=== PATIENT | male | born 1950 | race Caucasian/White ===

== ENCOUNTER → 2018-09-17 10:51 | Outpatient (BNVA) | payer MEDICARE, BC, SELFPAY | PROVIDERS: PCP Family Medicine; Referring Provider Family Medicine; Visit Provider Physical Therapy Assistant | DX: Z12.11 Encounter for screening for malignant neoplasm of colon (principal); I10 Essential (primary) hypertension ==

== ENCOUNTER 2018-10-01 09:04 | Day surgery (SDC) | payer MEDICARE, BC, SELFPAY ==
--- NOTE | 2018-10-01 06:57 | COLE_ITS ---
Date of service: 10/01/18 Time of Service: 11:02 Colonoscopy Report Date of procedure: 10/01/18 Pre-op diagnosis general: Colon Cancer Screening Post-op diagnosis procedure note: other (Mild Diverticulosis) Procedure: Colonoscopy Surgeon: Keesha Martines Anesthesia proc note operative: other (General/ ASA 2/ Mauricio Lagos, EDIN) Estimated blood loss (mL): 0 Pathology: none sent Complications: None Disposition: same day Indications: Mr. Wood is a pleasant 68 year old male seen in the office for a screening colonoscopy. His last Colonoscopy was in 2007 and was normal. Risks, benefits and complications have been reviewed. Complications include but are not limited to bleeding, pain, perforation, missed small lesion/polyp, sore throat, aspiration and adverse reaction to the medications. Questions were entertained a nd answered to their satisfaction and they wished to proceed. No guarantees were given or implied. Prep: Miralax/Dulcolax Procedure Start Time: 11:02 Procedure End Time: 11:23 Retraction Time: 11 minutes Findings: Mild diverticulosis of the sigmoid colon Procedure Description: After informed consent was obtained the patient was taken to the procedure room and placed in a left decubitous position. Monitors were applied and a time out was done. The patients name, date of , procedure, allergies to medications and metal in their body was reviewed. The patient was then sedated. Once sedated and comfortable a rectal exam was done. External exam was normal. Internal exam revealed a normal sphincter tone and no palpable masses. The prostate felt smooth. The scope was then introduced and retro-flexed. No internal hemorrhoids were identified. The scope was then advanced to the cecum without difficulty. The TI and appendiceal orifice were identified. The prep was adequate. The scope was then slowly retracted over 11 minutes back into the rectum. There were no polyps. There was mild diverticulosis of the sigmoid colon. The scope was removed and the patient was woken up and taken back to Same day surgery in stable condition. The patient tolerated the procedure well and there were no immediate complications. Follow up: The patient should follow up in 10 years unless they develop changes in bowel habits or other new gastrointestinal complaints.
--- NOTE | 2018-10-01 06:57 | W.PM.DSUDISC ---
Discharge Plan Disposition Patient Disposition: HOME Condition: Good Discharge Details Reason For Visit: Colonoscopy Attending Provider: Keesha Martines Primary Care Provider: Gian Israel Home Meds and New Rx's Prescriptions: Continued aspirin [Aspir-81] 81 mg tablet,delayed release (DR/EC) 81 mg PO .every 2 days RF: 0 terbinafine HCl 250 mg tablet 250 mg PO DAILY Qty: 30 RF: 2 CENTRUM SILVER TABLET 1 EACH tablet 0.5 tab PO DAILY Qty: 90 RF: 3 sildenafil [Viagra] 100 MG tablet 100 mg PO daily prn Qty: 6 RF: 11 losartan-hydrochlorothiazide 1 EACH tablet 1 tab-cap PO DAILY Qty: 90 RF: 4 Discontinued polyethylene glycol 3350 17 gram/dose powder 238 g PO ONCE Qty: 238 RF: 0 bisacodyl [Dulcolax (bisacodyl)] 5 mg tablet,delayed release (DR/EC) 5 mg PO ONCE Qty: 4 RF: 0 Discharge Instructions Instructions: Colonoscopy (DC), Diverticulosis (DC) Additional Instructions: Findings: mild diverticulosis Follow up: 10 years Please call if you develop: fevers >101.5 Nausea or Vomiting Abdominal pain that is not transient DAY SURGERY UNIT POST COLONOSCOPY INSTRUCTIONS 1. Because there will be medication in your system for the next 24 hours, you may feel a little sleepy. Your coordination will be affected. Therefore: a. Do not drive or operate dangerous equipment for 24 hours. b. Do not drink alcohol beverages for 24 hours (not even beer). c. Plan to go home and rest for the day. 2. Generally there are no restrictions on your activity after a day or so has gone by, but you may feel a bit fatigued for a few days. 3 After you arrive home you may have a light meal and return to a normal diet as you can tolerate it without feeling sick to your stomach. 4. After surgery, you may feel pain or discomfort. This should be only transient, but if it persists please contact your doctor. 5. If there are any questions regarding the findings of your procedure, please feel free to contact your doctor. 6. If you are unable to contact your doctor with a problem, contact the hospital at [phone]. 7. Continue all your regular medications unless directed otherwise. I understand the above instructions and have no questions. Signature of Patient or Responsible Adult Escort Date/Time Name of Responsible Adult Escort Signature of Nurse Date/Time Activity:: Activity as Tolerated Diet:: high fiber diet Discharge Orders Discharge Orders: Discharge Order (Routine); Ordered 10/01/18 Ordered By: Keesha Martines DS: Diagnosis Discharge Diagnosis (1) S/P colonoscopy: Status: Acute (2) Diverticulosis: Status: Acute
[2018-10-01 09:44] VITALS: BP 139/81; PULSE 75; RESP 18; TEMP 36.4; O2SAT 99
[2018-10-01] MEDS: Lactated Ringers 1,000 ML 80 ML IV (10:06)
[2018-10-01 11:58] VITALS: BP 125/95; PULSE 60; RESP 14; TEMP 35.7; O2SAT 99
== END 2018-10-01 12:39 | disposition home or self-care (01) ==
LOC: SUR 09:06
PROVIDERS: PCP Family Medicine; Visit Provider Surgery
PROC: 0DJD8ZZ Inspection of Lower Intestinal Tract, Via Natural or Artificial Opening Endoscopic (ICD-10-PCS; CPT 45378; principal; 2018-10-01 10:45)
DX: Z12.11 Encounter for screening for malignant neoplasm of colon (principal); K57.30 Diverticulosis of large intestine without perforation or abscess without bleeding; I10 Essential (primary) hypertension
CPT/HCPCS: G0121

== ENCOUNTER 2018-12-21 15:10 | Outpatient (CLI) | payer MEDICARE, BC, SELFPAY ==
[2018-12-21 16:09] LABS: CREATININE 1.36 mg/dL (0.70-1.30); Estimated GFR 52.11 (mL/min/1.73m2); Potassium 3.9 mmol/L (3.5-5.1)
== END 2018-12-21 15:30 ==
PROVIDERS: PCP Family Medicine; Visit Provider Family Medicine
DX: I10 Essential (primary) hypertension (principal)
CPT/HCPCS: 36415; 82565; 84132

== ENCOUNTER 2019-12-31 02:47 | Outpatient (CLI) | payer MEDICARE, BC, SELFPAY ==
[2019-12-31 16:25] LABS: CREATININE 1.29 mg/dL (0.70-1.30); Calculated LDL 108 mg/dL (<100); Cholesterol 215 mg/dL (<200); Estimated GFR 55.22 (mL/min/1.73m2); HDL Cholesterol 51 mg/dL (40-60); Potassium 4.1 mmol/L (3.5-5.1); Triglyceride 282 mg/dL (<150)
== END 2019-12-31 03:07 ==
PROVIDERS: PCP Family Medicine; Visit Provider Family Medicine
DX: I10 Essential (primary) hypertension (principal); E78.5 Hyperlipidemia, unspecified
CPT/HCPCS: 36415; 80061; 82565; 84132

== ENCOUNTER 2021-01-20 03:11 | Outpatient (CLI) | payer MEDICARE, BC, SELFPAY ==
[2021-01-20 09:43] LABS: CREATININE 1.3 mg/dL (0.70-1.30); Calculated LDL 119 mg/dL (<100); Cholesterol 207 mg/dL (<200); Estimated GFR 54.57 (mL/min/1.73m2); HDL Cholesterol 57 mg/dL (40-60); Potassium 3.9 mmol/L (3.5-5.1); Triglyceride 155 mg/dL (<150)
== END 2021-01-20 03:12 | disposition home or self-care (01) ==
LOC: LBO 03:11
PROVIDERS: PCP Family Medicine; Visit Provider Family Medicine
DX: I10 Essential (primary) hypertension (principal); E78.5 Hyperlipidemia, unspecified; E11.65 Type 2 diabetes mellitus with hyperglycemia
CPT/HCPCS: 36415; 80061; 82565; 84132

== ENCOUNTER → 2021-12-16 07:48 | Outpatient (BNVA) | payer MEDICARE, SELFPAY | PROVIDERS: PCP Family Medicine; Referring Provider Family Medicine; Visit Provider Student in an Organized Health Care Education/Training Program | DX: M72.0 Palmar fascial fibromatosis [Dupuytren] (principal) | CPT/HCPCS: 99202 ==

== ENCOUNTER → 2022-02-28 14:01 | Outpatient (BNVA) | payer MEDICARE, SELFPAY | PROVIDERS: PCP Family Medicine; Referring Provider Family Medicine; Visit Provider Student in an Organized Health Care Education/Training Program | DX: M72.0 Palmar fascial fibromatosis [Dupuytren] (principal) | CPT/HCPCS: 99213 ==

== ENCOUNTER 2022-03-23 11:47 | Day surgery (SDC) | payer MEDICARE, SELFPAY ==
--- NOTE | 2022-03-23 08:26 | W.PM.DSUDISC ---
Discharge Plan Disposition Patient Disposition: HOME Condition: Good Discharge Details Reason For Visit: Dupuytren's contracture of left hand Attending Provider: Hemal Siddiqi Primary Care Provider: Gian Israel Home Meds and New Rx's Prescriptions: New acetaminophen 500 mg tablet 500 mg PO Q6H PRN (Reason: pain) Qty: 60 2RF hydrocodone-acetaminophen 5-325 mg tablet 1 tab PO Q6H PRN (Reason: severe pain) Qty: 3 0RF Rx Instructions: Take one tablet up to every 6 hours as needed for severe postoperative pain ibuprofen 600 mg tablet 600 mg PO TID PRN (Reason: pain) Qty: 60 0RF Continued fluoride (sodium) [SF] 1.1 % gel 1 applic dental DAILY metoprolol succinate 25 mg tablet extended release 24 hr 50 mg PO DAILY Qty: 180 3RF Rx Instructions: dose increase 10/12/21 amlodipine 10 mg tablet 5 mg PO DAILY Qty: 90 3RF Rx Instructions: dose decrease 10/12/21 CENTRUM SILVER TABLET 1 EACH tablet 0.5 tab PO DAILY Qty: 90 3RF sildenafil [Viagra] 100 mg tablet 100 mg PO daily prn Qty: 30 11RF hydrochlorothiazide 12.5 mg tablet 12.5 mg PO DAILY Qty: 90 3RF losartan 100 mg tablet 100 mg PO DAILY Qty: 90 3RF Discharge Instructions Additional Instructions: Dupuytren's Contracture Discharge Instructions Activity: You may use your fingers for light activity. You should limit any excessive motion or forceful gripping until the sutures have been removed. Dressings: You should keep the initial surgical dressing in place for at least 3 days. You may remove your dressings and get the wound wet after 3 days. You should keep the dressings and the wound clean at all times. You may keep the initial dressing in place until your follow-up but keep the wound covered with light gauze until the sutures are removed. Medications: - You should take Tylenol and Ibuprofen around the clock as prescribed or per track production engineer's recommendations. - You have Hydrocodone prescribed for breakthrough pain control. Take only as needed and limit use as much as possible. This may cause constipation. Follow-up: 7-10 days for wound check and suture removal. Stand Alone Forms: Rodney Portillo (ATIF) Referrals: Hemal Siddiqi MD [ [facility] STAFF PHYSICIAN] - Activity:: Elevate Remove Dressings/Wound Care:: 72 hours Shower/Bathe:: 72 hours Diet:: As Tolerated Discharge Orders Discharge Orders: Discharge Order (Routine); Ordered 03/23/22 Ordered By: Kaye Calderon
[2022-03-23 12:04] VITALS: BP 129/87; PULSE 76; RESP 16; TEMP 36.7; O2SAT 97
[2022-03-23] MEDS: Lidocaine 1% Multi-Dose W/EPI 1/100,000 50 ML VIAL (13:54)
[2022-03-23] MEDS: Sodium Bicarbonate 50 MEQ/50 ML VIAL (13:54)
[2022-03-23 14:32] VITALS: BP 140/80; PULSE 63; RESP 16; TEMP 36.2; O2SAT 96
--- NOTE | 2022-03-24 06:52 | W.PM.OP ---
Date of service: 03/23/22 Time of Service: 14:30 Operative Note Operative Note DATE OF PROCEDURE: 03/23/22 PRE-OP DIAGNOSIS: Left Dupuytren's Contracture POST-OP DIAGNOSIS: same PROCEDURE: Partial Palmar Fasciectomy for Dupuytren's SURGEON: Hemal Siddiqi ANESTHESIA TYPE: Local By Surgeon Refer to Anesthesia Record ESTIMATED BLOOD LOSS: 10 PATHOLOGY: none sent TOURNIQUET TIME: 0 COMPLICATIONS: None Patient was transported to: same day Patient's condition: stable Indications: I have seen Geovani in clinic for symptoms of Dupuytren's contracture. The restricted motion, pain, and nodularity limited function. The symptoms had not responded to conservative measures. I discussed treatment options with the patient. I recommended a partial palmar fasciectomy. I reviewed the risks of the procedure to include, but not limited to, bleeding, infection, pain, stiffness, incomplete resection, damage to nerves or vessels, recurrence. Despite these risks,Geovani elected to proceed. Findings: There is a dense central cord from the palm to the base of the middle finger. This was resected and whole including a large nodule overlying the middle finger MCP joint. Additionally, there is a natatory cord from the third ray central cord towards the ring finger. This was also resected. Procedure Description: Geovani was greeted in the preoperative holding area where the correct side was identified and marked. The consent was reviewed with the patient and signed. All questions were answered. Geovani was taken back to the operating room. The patient was placed into the supine position on the operating room table with the left arm on an arm board. All bony prominences were well padded. No prophylactic antibiotics were administered since this was a clean, elective hand surgical case. The left arm was then prepped with Chloraprep and draped in a standard fashion with stockinette and extremity drape. A timeout to confirm correct identity, side and site, procedure, allergies, anesthesia, and medical concerns was performed. The surgical site was marked as a Hossein type incision directly over the central cord of the third digit extending onto the base of the middle finger. This was then incised sharply through the skin after confirming appropriate anesthetic set up. There was a small area of skin resected overlying the large pad of the palmar MCP joint of the middle finger. The skin was tightly adherent to the nodule in this location. Otherwise, the skin was elevated off the underlying cord and bluntly dissected from the other soft tissues using tenotomy scissors and a knife. This gave excellent exposure to the central cord of the middle finger. Starting proximally I elevated the base of the cord from the skin and soft tissues deep. I then transected and began to elevate the cord out of the palm working from proximal to distal. This is elevated and hold keep in the court is 1 unit. Continue to be elevated to the level of the MP joint. Some attachments to the A1 shania were resected. The large nodule of the middle finger MCP joint was removed in whole including a portion of skin which was tightly adherent. Once this was resected it was transected from a natatory cord extending the ring finger. The cord was removed. The wound bed was inspected to make sure there is no other significant nodularity or cords. There is a small nodule just proximal to the larger one which was removed but given its proximity to the other area and the thinning of the skin I did not elevate this out. However, because no contracture of the digit. I then began to elevate the skin and soft tissues over the natatory cord extending from the middle finger ray towards the ring finger. This was elevated towards the base of the proximal fans of the ring finger. Once it was fully elevated it was resected. The dimpling of the skin at the level the ring finger then improved and there is no contracture felt between the middle and ring fingers. No tourniquet was used and there is no significant arterial bleeding. There was some constant ooze which was present from the entirety of the case mostly from the skin. The wound was then irrigated and the skin was closed with a 4-0 Nylon. This was dressed with gauze and a Conform dressing. The patient tolerated the procedure well and was returned to the Same Day Surgery area in a stable condition suffering no known complication.
== END 2022-03-23 15:08 | disposition home or self-care (01) ==
PROVIDERS: PCP Family Medicine; Visit Provider Student in an Organized Health Care Education/Training Program
PROC: (CPT 26121; principal; 2022-03-23 14:30)
DX: M72.0 Palmar fascial fibromatosis [Dupuytren] (principal)
CPT/HCPCS: 26121

== ENCOUNTER → 2022-04-01 09:40 | Outpatient (BNVA) | payer MEDICARE, SELFPAY | PROVIDERS: PCP Family Medicine; Referring Provider Family Medicine; Visit Provider Student in an Organized Health Care Education/Training Program | DX: Z47.89 Encounter for other orthopedic aftercare (principal); M72.0 Palmar fascial fibromatosis [Dupuytren] ==

== ENCOUNTER 2022-04-28 03:59 | Outpatient (CLI) | payer MEDICARE, SELFPAY ==
[2022-04-28 08:02] LABS: CREATININE 1.3 mg/dL (0.70-1.30); Calculated LDL 130 mg/dL (<100); Cholesterol 220 mg/dL (<200); Estimated GFR 58.73 (mL/min/1.73m2); HDL Cholesterol 56 mg/dL (40-60); Potassium 3.9 mmol/L (3.5-5.1); Triglyceride 172 mg/dL (<150)
== END 2022-04-28 04:00 | disposition home or self-care (01) ==
LOC: LBO 03:59
PROVIDERS: PCP Family Medicine; Visit Provider Family Medicine
DX: E78.5 Hyperlipidemia, unspecified (principal); I10 Essential (primary) hypertension
CPT/HCPCS: 36415; 80061; 82565; 84132

== ENCOUNTER → 2022-05-13 00:50 | Outpatient (CLI) | payer MEDICARE, SELFPAY ==
--- NOTE | 2022-05-13 06:45 | DI.RAD_ITS ---
Exam(s) RF BARIUM SWALLOW EXAM: RF BARIUM SWALLOW CLINICAL HISTORY: choking on food at times,DYSPHAGIA, R13.10 TECHNIQUE: 2D and realtime digital imaging was performed. CONTRAST MATERIAL: Oral barium Oral water soluble contrast was administered. COMPARISON: CR CHEST 2 VIEWS PA,LAT from 06/21/2016 FINDINGS: ESOPHAGRAM: This esophagram was performed with single and air contrast technique both upright and CARRILLO recumbent. The junior data analyst film reveals infiltrate and pleural fluid in left lung base. Also calcified pleural plaque in the right lung base. Swallowing mechanism appears intact and there is no penetration or aspiration evident. No Zenker's d iverticulum. There is no hypertense upper esophageal sphincter. However there is a consistent small indentation of the anterior wall of the upper esophagus at C5 level, exhibiting benign appearance an d without tight stricture at this level. Below this level there are no fixed lesions in the an GE ju nction. There is no evidence of hiatal hernia. There is no GE reflux demonstrated during this study . IMPRESSION: No evidence of significant lesions in the esophagus and GE junction. Also no evidence of hiatal crow ia nor GE reflux. Upper level anterior bar noted indenting the anterior wall of the esophagus at C5 level. This has be nign appearance and there is no tight stricture at this level. There is also no evidence of Zenker's diverticulum. RADIATION DOSE DELIVERED: reji Amador=52.6 mGy
[2022-05-13] MEDS: Barium Sulfate 60% W/V 355 ML BTL PO ×2 (09:33→09:34)
[2022-05-13] MEDS: Simethicone/Sod Bicarb/Cit Ac, 4 gram PACKET 1 PACKET PO (09:35)
== END ==
PROVIDERS: PCP Family Medicine; Visit Provider Family Medicine
DX: R13.10 Dysphagia, unspecified (principal)
CPT/HCPCS: 74221

== ENCOUNTER 2022-07-19 03:07 | Outpatient (CLI) | payer MEDICARE, SELFPAY ==
[2022-07-19 13:11] LABS: Vitamin B12 607 pg/mL (193-986)
== END 2022-07-19 03:08 | disposition home or self-care (01) ==
LOC: LOS 03:08
PROVIDERS: PCP Family Medicine; Visit Provider Family Medicine
DX: D64.9 Anemia, unspecified (principal)
CPT/HCPCS: 36415; 82607

== ENCOUNTER → 2023-02-17 09:56 | Outpatient (BNVA) | payer MEDICARE, SELFPAY | PROVIDERS: PCP Family Medicine; Referring Provider Family Medicine; Visit Provider Student in an Organized Health Care Education/Training Program | DX: M72.0 Palmar fascial fibromatosis [Dupuytren] (principal) | CPT/HCPCS: 99213 ==

== ENCOUNTER 2023-04-26 10:00 | Day surgery (SDC) | payer MEDICARE, SELFPAY ==
[2023-04-26 10:05] VITALS: BP 154/93; PULSE 68; RESP 18; TEMP 36.6; O2SAT 97
[2023-04-26] MEDS: Lidocaine 1% Multi-Dose W/EPI 1/100,000 50 ML VIAL (11:47)
[2023-04-26] MEDS: Sodium Bicarbonate 50 MEQ/50 ML VIAL (11:48)
--- NOTE | 2023-04-26 12:08 | W.PM.DSUDISC ---
Date of service: 04/26/23 Time of Service: 12:09 Discharge Plan Disposition Patient Disposition: Home Condition: Good Discharge Details Reason For Visit: Dupuytren's Contracture Release Attending Provider: Hemal Siddiqi Primary Care Provider: Gian Israel Home Meds and New Rx's Prescriptions: New acetaminophen 500 mg tablet 1,000 mg PO TID Qty: 90 0RF hydrocodone-acetaminophen 5-325 mg tablet 1 tab PO Q6H PRN (Reason: pain) Qty: 6 0RF Continued fluoride (sodium) [SF] 1.1 % gel 1 applic dental DAILY CENTRUM SILVER TABLET 1 EACH tablet 0.5 tab PO DAILY Qty: 90 3RF sildenafil [Viagra] 100 mg tablet 100 mg PO daily prn Qty: 30 11RF hydrochlorothiazide 12.5 mg tablet 12.5 mg PO DAILY Qty: 90 3RF Rx Instructions: 90 day courtesy refill pending labs. 04/18/22 AT tacrolimus 0.1 % ointment 1 applic topical BID Qty: 60 1RF amlodipine 10 mg tablet 5 mg PO DAILY Qty: 90 3RF losartan 100 mg tablet 100 mg PO DAILY Qty: 90 3RF metoprolol succinate 25 mg tablet extended release 24 hr 50 mg PO DAILY Qty: 180 3RF Discontinued acetaminophen 500 mg tablet 500 mg PO Q6H PRN (Reason: pain) Qty: 60 2RF Discharge Instructions Additional Instructions: Dupuytren's Contracture Discharge Instructions Activity: You may use your fingers for light activity. You should limit any excessive motion or forceful gripping until the sutures have been removed. Dressings: You should keep the initial surgical dressing in place for at least 3 days. You may remove your dressings and get the wound wet after 3 days. You should keep the dressings and the wound clean at all times. You may keep the initial dressing in place until your follow-up but keep the wound covered with light gauze until the sutures are removed. Medications: - You should take Tylenol around the clock as prescribed or per opto mechanical technician's recommendations. - You have Hydrocodone prescribed for breakthrough pain control. Take only as needed and limit use as much as possible. This may cause constipation. Follow-up: 7-10 days for wound check and suture removal. Referrals: Hemal Siddiqi MD [ [facility] STAFF PHYSICIAN] - Activity:: Activity as Tolerated Remove Dressings/Wound Care:: 72 hours Shower/Bathe:: 72 hours Diet:: As Tolerated Discharge Orders Discharge Orders: Discharge Order (Routine); Ordered 04/26/23 Ordered By: Igor Maurice DS: Diagnosis Discharge Diagnosis (1) Dupuytren's contracture of both hands: Status: Acute
[2023-04-26 12:55] VITALS: BP 148/77; PULSE 63; RESP 14; TEMP 36.2; O2SAT 97
--- NOTE | 2023-04-26 17:36 | W.PM.OP ---
Date of service: 04/26/23 Time of Service: 12:30 Operative Note Operative Note DATE OF PROCEDURE: 04/26/23 PRE-OP DIAGNOSIS: Dupuytren's Disease - Right Hand POST-OP DIAGNOSIS: same PROCEDURE: Partial Palmar Fasciectomy - Right Hand with Fascial Excision of Little Finger and Ring Finger SURGEON: Hemal Siddiqi ANESTHESIA TYPE: Local By Surgeon Refer to Anesthesia Record ESTIMATED BLOOD LOSS: 20 PATHOLOGY: none sent COMPLICATIONS: None Patient was transported to: same day Patient's condition: stable Indications: I have seen Geovani in clinic for Dupuytren's contracture invovling the hadn and the little and ring fingers primarily. The deformity was interfering with daily function and he had successful surgery on the left hand last year. I discussed partial palmar fasciectomy with the patient. I reviewed the risks of the procedure to include, but not limited to, bleeding, infection, pain, stiffness, incomplete release, damage to nerves or vessels, continued catching, recurrence. Despite these risks, the patient elected to proceed. Procedure Description: Geovani was greeted in the preoperative holding area where the correct side was identified and marked. The consent was reviewed with the patient and signed. All questions were answered. He was taken back to the operating room. The patient was placed into the supine position on the operating room table with the right arm on an arm board. All bony prominences were well padded. No prophylactic antibiotics were administered since this was a clean, elective hand surgical case. The right arm was then prepped with Chloraprep and draped in a standard fashion with stockinette and extremity drape. A timeout to confirm correct identity, side and site, procedure, allergies, anesthesia, and medical concerns was performed. The surgical site was marked as 2 Hossein incisions, one biased over the little finger ray and the other biased over the radial side of the ring finger ray. The proposed little finger incision extended all the way to the PIP joint. The proposed incision sites were then injected with 1% lidocaine with epinephrine, buffered with sodium bicarbonate. Once complete anesthesia was had over the proposed sites, surgery began with incising the skin only, starting with the little finger. The skin was incised and adhesions between the skin and the underlying palmar fascial cords was released. The primary central cord of the little finger was identified and traced back proximally. It was transected from the proximal origin and then elevated out of the wound. There is multiple deep structural bands attaching to the A1 shania and flexor tendon sheath deep. These were released and taken out through the central portion of the proximal phalanx. There is a separate spiral type cord ascending to the little finger which cross the PIP joint with a nodule at the level of the PIP joint. This was excised sharply. Neurovascular tissues were protected. The cord was resected and any deeper adhesions were released to regain full motion of the PIP joint. Working from within this wound I also traced and identified a natatory cord between the little finger and ring finger. This was also dissected away from the overlying skin and released. Attention was then turned to the middle finger ray. This incision was incised through the skin only. Once again adhesions between the skin and the palmar fascia cord were released and the central cord above the middle finger was identified. This was taken down distally to the level of the proximal phalanx. It did not have any spiral component. However, it was quite thick and dense. The bulk of the cord was resected. Adhesions deeper were released. The natatory cord was also resected. I was also able to elevate the skin and transect the middle finger ray cord. Fingers had full extension. The wound was then irrigated and the skin was closed with a 4-0 Nylon. This was dressed with gauze and a Conform dressing. The patient tolerated the procedure well and was returned to the Same Day Surgery area in a stable condition suffering no known complication.
== END 2023-04-26 10:01 | disposition home or self-care (01) ==
PROVIDERS: PCP Family Medicine; Visit Provider Student in an Organized Health Care Education/Training Program
PROC: (CPT 26125; principal; 2023-04-26 11:30)
DX: M72.0 Palmar fascial fibromatosis [Dupuytren] (principal)
CPT/HCPCS: 26125; 26123; 00123; J1100; J2001; J2250; J2405

== ENCOUNTER → 2023-05-08 10:22 | Outpatient (BNVA) | payer MEDICARE, SELFPAY | PROVIDERS: PCP Family Medicine; Referring Provider Family Medicine; Visit Provider Student in an Organized Health Care Education/Training Program | DX: Z47.89 Encounter for other orthopedic aftercare (principal); M72.0 Palmar fascial fibromatosis [Dupuytren] ==

== ENCOUNTER 2023-05-30 03:14 | Outpatient (CLI) | payer MEDICARE, SELFPAY ==
[2023-05-30 08:40] LABS: CREATININE 1.4 mg/dL (0.70-1.30); Calculated LDL 121 mg/dL (<100); Cholesterol 209 mg/dL (<200); Estimated GFR 53.07 (mL/min/1.73m2); HDL Cholesterol 64 mg/dL (40-60); Potassium 4.3 mmol/L (3.5-5.1); Triglyceride 124 mg/dL (<150)
== END 2023-05-30 03:15 | disposition home or self-care (01) ==
LOC: LBO 03:14
PROVIDERS: PCP Family Medicine; Visit Provider Family Medicine
DX: I10 Essential (primary) hypertension (principal); E78.5 Hyperlipidemia, unspecified; E11.51 Type 2 diabetes mellitus with diabetic peripheral angiopathy without gangrene
CPT/HCPCS: 36415; 80061; 82565; 83036; 84132

== ENCOUNTER 2024-05-15 00:55 | Outpatient (CLI) | payer MEDICARE, SELFPAY ==
--- NOTE | 2024-05-15 07:00 | DI.US_ITS ---
Exam(s) US CAROTID EXAM: US CAROTID CLINICAL HISTORY: rt leg numbness,tia,g45.9. TECHNIQUE: Ultrasound carotids performed using grayscale, color-flow, and spectral Doppler imaging. COMPARISON: No exams were available for comparison FINDINGS: RIGHT CAROTID ARTERY: Plaque: Minimal at bulb. Velocity elevation: None. LEFT CAROTID ARTERY: Plaque: Minimal at bulb. Velocity elevation: None. VERTEBRAL ARTERIES: Antegrade flow. Measurements: R Bulb: 72.3cm/s PS / 23.5cm/s ED R CCA: 81.5cm/s PS / 14.1cm/s ED R ECA: 58cm/s PS / 6.3cm/s ED R ICA Prox: 62.6cm/s PS / 19.1cm/s ED R ICA Mid: 93.6cm/s PS / 31.6cm/s ED R ICA Distal: 92.2cm/s PS /31.4cm/s ED R Vert: 37cm/s PS / 5.8cm/s ED R SVR: 1.1 R DVR: 2.2 L Bulb: 75.3cm/s PS / 15.2cm/s ED L CCA: 72.3cm/s PS / 17.3cm/s ED L ECA: 74.3cm/s PS / 10.1cm/s ED L ICA Prox: 67.4cm/s PS / 19.5cm/s ED L ICA Mid: 76.8cm/s PS / 26.8cm/s ED L ICA Distal: 88.4cm/s PS / 31cm/s ED L Vert: 50.2cm/s PS / 12.7cm/s ED L SVR: 1.2 L DVR: 1.8 IMPRESSION: No evidence for hemodynamically significant carotid stenosis. Minimal focal plaque at the common car otid bulbs. Criteria for Carotid Stenosis: Normal: ICA PSV <125 cm/s no plaque or intimal thickening is visible. <50% stenosis: ICA PSV <125 cm/s and plaque or intimal thickening is visible. 50-69% stenosis: ICA PSV is 125-250 cm/s and plaque is visible. >70% stenosis to near occlusion: ICA PSV >250 cm/s with visible plaque and luminal narrowing. DATA REPOSITORY:
== END 2024-05-15 01:15 ==
LOC: DI 00:55
PROVIDERS: PCP Family Medicine; Visit Provider Family Medicine
DX: G45.9 Transient cerebral ischemic attack, unspecified (principal)
CPT/HCPCS: 93880

== ENCOUNTER 2024-05-15 02:21 | Outpatient (CLI) | payer MEDICARE, SELFPAY ==
[2024-05-15 11:58] LABS: CREATININE 1.3 mg/dL (0.70-1.30); Calculated LDL 112 mg/dL (<100); Cholesterol 197 mg/dL (<200); Estimated GFR 58.01 (mL/min/1.73m2); Glucose 92 mg/dL (74-106); HDL Cholesterol 67 mg/dL (40-60); Potassium 4.3 mmol/L (3.5-5.1); Triglyceride 92 mg/dL (<150)
== END 2024-05-15 02:22 | disposition home or self-care (01) ==
LOC: LBO 02:21
PROVIDERS: PCP Family Medicine; Visit Provider Family Medicine
DX: I10 Essential (primary) hypertension (principal); R73.9 Hyperglycemia, unspecified; E78.5 Hyperlipidemia, unspecified
CPT/HCPCS: 36415; 80061; 82947; 82565; 84132

== ENCOUNTER 2024-06-04 09:02 | Outpatient (CLI) | payer MEDICARE, SELFPAY ==
[2024-06-04 08:36] LABS: Hemoglobin A1C 6.4 % (<5.7)
== END 2024-06-04 09:03 | disposition home or self-care (01) ==
LOC: LBO 09:02
PROVIDERS: PCP Family Medicine; Visit Provider Family Medicine
DX: E11.51 Type 2 diabetes mellitus with diabetic peripheral angiopathy without gangrene (principal); I70.209 Unspecified atherosclerosis of native arteries of extremities, unspecified extremity
CPT/HCPCS: 36415; 83036

== ENCOUNTER 2024-06-24 12:00 | Outpatient (CLI) | payer MEDICARE, SELFPAY ==
[2024-06-24 09:47] LABS: Abs Immature Grans 0.02 10^3/uL (0.0-0.06); Absolute Basophil Count 0.11 10^3/uL (0.0-0.2); Absolute Eosinophil Count 0.62 10^3/uL (0.0-0.7); Absolute Lymphocyte Count 1.63 10^3/uL (1.2-3.4); Absolute Monocyte Count 0.67 10^3/uL (0.1-0.8); Absolute Neutrophil Count 3.71 10^3/uL (1.2-6.7); Basophils % 1.6 %; Eosinophils % 9.2 %; HCT 42.8 % (40.0-50.0); HGB 13.7 g/dL (13.5-17.5); Immature Grans % 0.3 %; Lymphocytes % 24.1 %; MCH 26.8 pg (27.0-33.0); MCV 84 fL (80-95); MPV 10.2 fL (8.0-11.0); Monocytes % 9.9 %; Neutrophils % 54.9 %; Platelet Count 300 10^3/uL (130-400); RBC 5.12 10^6/uL (4.36-5.78); RDW 16.4 % (11.8-14.1); RDW-SD 49.6 fL; WBC 6.76 10^3/uL (4.4-10.8)
[2024-06-24 10:25] LABS: Iron 64 ug/dL (65-175); Total Iron Binding Capacity 425 ug/dL (250-450)
[2024-06-24 10:35] LABS: ALT 28 U/L (16-63); AST 24 U/L (15-37); Albumin 3.7 g/dL (3.4-5.0); Alkaline Phosphatase 69 U/L (46-116); Anion Gap 6.3 mmol/L (3-11); BUN 24 mg/dL (7-18); Bilirubin, Total 1.05 mg/dL (0.2-1.0); CO2 29.7 mmol/L (21.0-32.0); CREATININE 1.4 mg/dL (0.70-1.30); Chloride 104 mmol/L (98-107); Estimated GFR 52.74 (mL/min/1.73m2); Ferritin 12 ng/mL (26-388); Glucose 82 mg/dL (74-106); Potassium 4.4 mmol/L (3.5-5.1); Sodium 140 mmol/L (136-145); TSH (W/Ref FT4) 1.82 uIU/mL (0.36-3.74); Total Protein 7.8 g/dL (6.4-8.2); Vitamin B12 747 pg/mL (193-986)
[2024-06-25 09:43] LABS: Transferrin 362 mg/dL (201-352)
== END 2024-06-24 12:01 | disposition home or self-care (01) ==
LOC: LBO 12:00
PROVIDERS: PCP Family Medicine; Visit Provider Nurse Practitioner Family
DX: D64.9 Anemia, unspecified (principal)
CPT/HCPCS: 36415; 80053; 82607; 82728; 83540; 83550; 84443; 84466; 85025

== ENCOUNTER 2024-07-10 04:29 | Outpatient (CLI) | payer MEDICARE, SELFPAY ==
--- NOTE | 2024-07-11 10:46 | TELEFU_ITS ---
Date of service: 07/10/24 Time of Service: 14:30 Nutrition Note NOTE: Christina arrived for referred nutrition appt with his , Carito, who tends to do most of the meal prep/cooking. Concern over Christina's A1C prompted today's visit, which increased to 6.4% at provider visit 06/24. Christina suggest that this increase was due to time of the year with holidays contributing. He had labs done on 06/24 and had high BUN/Cr at 24/1.4 respectively and also GFR of 52.74. Ferritin was low and transferrin was high possibly indication lower hepatic iron stores. Pt eats pretty well at home and is very active for his age. Has strong history of familial diabetes. Does have sensitivity to lactose but denies gluten allergy that I see listed in his allergy list. Does not take any meds for glucose management currently. We spent time reviewing his targets for calories, total carbohydrates, protein and fat (2000,200,125-150, 67 respectively) and reviewed carb goals of no more than 30g of total carbs coming from added sugars and trying to get a good 30g fiber out of this total as well. We discussed protein goal and aiming for a fair percentage to come from plant protein with using beans, lentils to replace some starch and also use nuts and seeds as part of snacks. We looked at serving sizes of CHO and 15g in a serving - suggested 13 servings as goal for the day. and we discussed choosing lower glycemic starches (which his seemed to have knowledge about). We reviewed a 2-day sample menu and pt and given resources to help suggest menus using AI resources. gave my card with contact info should they desire follow up (Christina sees rahat in august) REcommendations would be to stay active, monitor and manipulate carb/added sugar intake and maintain adequate protein intake. if glycemic control continues to worsen, would suggest a starting dose of SGLT2- i due to lower GFR and elevated BUN/Cr. -Encouraged christina to stay on top of blood pressure and cholesterol as well. Time Spent in Nutritional Counseling and Treatment: 45 min
== END 2024-07-10 04:30 | disposition home or self-care (01) ==
LOC: DS 04:29
PROVIDERS: PCP Family Medicine; Visit Provider Dietitian, Registered
DX: R73.9 Hyperglycemia, unspecified (principal)
CPT/HCPCS: 00123; 97802

== ENCOUNTER 2024-09-09 04:16 | Outpatient (CLI) | payer MEDICARE, SELFPAY ==
[2024-09-09 10:51] LABS: Abs Immature Grans 0.02 10^3/uL (0.0-0.06); Absolute Eosinophil Count 0.54 10^3/uL (0.0-0.7); Absolute Lymphocyte Count 1.74 10^3/uL (1.2-3.4); Absolute Monocyte Count 0.59 10^3/uL (0.1-0.8); Absolute Neutrophil Count 4.48 10^3/uL (1.2-6.7); Basophils % 1.3 %; Eosinophils % 7.2 %; HCT 39.6 % (40.0-50.0); HGB 13.1 g/dL (13.5-17.5); Immature Grans % 0.3 %; Lymphocytes % 23.3 %; MCH 27.9 pg (27.0-33.0); MCHC 33.1 % (32.0-36.0); MCV 84 fL (80-95); MPV 10.7 fL (8.0-11.0); Monocytes % 7.9 %; Platelet Count 271 10^3/uL (130-400); RBC 4.69 10^6/uL (4.36-5.78); RDW 17.1 % (11.8-14.1); RDW-SD 52.3 fL; WBC 7.47 10^3/uL (4.4-10.8)
[2024-09-09 11:30] LABS: Ferritin 15 ng/mL (26-388)
[2024-09-09 12:02] LABS: Iron 165 ug/dL (65-175); Total Iron Binding Capacity 396 ug/dL (250-450)
[2024-09-10 10:41] LABS: Transferrin 311 mg/dL (201-352)
== END 2024-09-09 04:17 | disposition home or self-care (01) ==
LOC: LBO 04:16
PROVIDERS: PCP Family Medicine; Visit Provider Nurse Practitioner Family
DX: D50.9 Iron deficiency anemia, unspecified (principal); R73.9 Hyperglycemia, unspecified
CPT/HCPCS: 82728; 83036; 83540; 83550; 84466; 85025

== ENCOUNTER 2024-11-19 06:08 | Emergency (ER) | payer MEDICARE, SELFPAY ==
[2024-11-19] VITALS (34 sets, daily range): BP systolic 138–197; BP diastolic 68–93; PULSE 40–66; RESP 12–24; TEMP 36.6; O2SAT 97–100
--- NOTE | 2024-11-19 06:00 | RT.EKG_ITS ---
APPROVED REPORT Exam: Resting ECG Reason for Exam: Chest Pain Patient Location: E HR:60 bpm ECG Measurements Heart Rate 60 AXIS MA 209 P 86 QRSd 101 QRS 47 QT 437 T 40 QTc 436 Conclusion Sinus rhythm...normal P axis, V-rate 60- 99 Probable anterolateral infarct, old...Q>35mS, abnrm ST-T, V2-V6,I,aVL PHysician: Elevated R waves suggestive of VH, somewhat increased from prior ekg in 2018
--- NOTE | 2024-11-19 06:15 | DI.RAD_ITS ---
Exam(s) XR PORTABLE CHEST AP EXAM: XR PORTABLE CHEST AP CLINICAL HISTORY: central chest discomfort TECHNIQUE: 2D digital imaging was performed. COMPARISON: CR CHEST 2 VIEWS PA,LAT from 06/21/2016 CR,RF RF BARIUM SWALLOW from 05/13/2022 FINDINGS: LUNGS: Biapical scarring, otherwise clear. No pleural abnormality seen. HEART: Normal size. AORTA: Normal diameter. BONES: Unremarkable for age. Soft tissues: The left hemidiaphragm is elevated. Pleural plaque again noted at right diaphragm. IMPRESSION: No acute findings. DATA REPOSITORY: RADIATION DOSE DELIVERED:
[2024-11-19] MEDS: Aspirin 81 MG CHEW 324 MG CH (06:25)
--- NOTE | 2024-11-19 06:26 | W.ED.GENAD ---
Discharge Plan Discharge Details Chief Complaint: Chest Pain Clinical Impression: Chest discomfort Primary Care Provider: Gian Israel ED Provider: Nelson Hearn Home Meds and New Rx's Prescriptions: No Action mecobalamin (vitamin B12) 500 mcg tablet,chewable 500 mcg PO DAILY doxycycline hyclate 100 mg capsule 200 mg PO ONCE Qty: 2 0RF Rx Instructions: Take 2 tabs (200mg) x1. Be cautious of sun exposure CENTRUM SILVER TABLET 1 EACH tablet 0.5 tab PO DAILY Qty: 90 3RF sildenafil [Viagra] 100 mg tablet 100 mg PO daily prn Qty: 30 11RF tacrolimus 0.1 % ointment 1 applic topical BID Qty: 60 1RF losartan 100 mg tablet 100 mg PO DAILY Qty: 90 3RF metoprolol succinate 25 mg tablet extended release 24 hr 50 mg PO DAILY Qty: 180 3RF amlodipine 10 mg tablet 5 mg PO DAILY Qty: 45 3RF ferrous sulfate [Iron (ferrous sulfate)] 325 mg (65 mg iron) tablet 325 mg PO DAILY Qty: 90 3RF acetaminophen 500 mg tablet 1,000 mg PO TID Qty: 90 0RF HPI General Date/Time Provider Initiated Documentation: 11/19/24 06:10. HPI Narrative: This is a very pleasant 74-year-old male with a past medical history of diabetes that is being diet and lifestyle manage, hypertension, high cholesterol, previous spontaneous pneumothorax, multiple allergies, strong family history in his brother and father's of cardiac disease, who presents today for evaluation of chest discomfort. Patient states that he woke up this morning in a normal fashion and noticed that he had some mild tightness in his chest radiating from the sides towards the center. He denies any tearing or ripping sensation. He denies any radiation to the neck or arms. He denies any syncope. He states that he feels better now than when symptoms first began. He denies any pleuritic chest pain. He denies any recent exertional discomfort over the last few days or fatigue. He denies any other complaints at this time. He states that he did have a stress test years ago which was unremarkable. No known cardiac history otherwise. Related Data Home Medications ?Medication ?Instructions ?Recorded ?Confirmed sildenafil 100 mg tablet (Viagra) 100 mg PO daily prn #30 tab-caps 08/30/19 11/19/24 tacrolimus 0.1 % topical ointment 1 applic topical BID skin rash on 09/14/22 11/19/24 arms./legs #60 grams acetaminophen 500 mg tablet 1,000 mg (2 x 500 mg) PO TID #90 04/26/23 11/19/24 tabs mecobalamin (vitamin B12) 500 mcg 500 mcg PO DAILY 11/14/23 11/19/24 chewable tablet losartan 100 mg tablet 100 mg PO DAILY #90 tabs 02/19/24 11/19/24 metoprolol succinate 25 mg 50 mg (2 x 25 mg) PO DAILY #180 02/19/24 11/19/24 tablet,extended release 24 hr tabs amlodipine 10 mg tablet 5 mg (1/2 x 10 mg) PO DAILY #45 04/10/24 11/19/24 tabs ferrous sulfate 325 mg (65 mg 325 mg PO DAILY #90 tabs 07/25/24 11/19/24 iron) tablet (Iron (ferrous sulfate)) doxycycline hyclate 100 mg capsule 200 mg (2 x 100 mg) PO ONCE #2 caps 11/09/24 11/19/24 Previous Rx's ?Medication ?Instructions ?Recorded sildenafil 100 mg tablet (Viagra) 100 mg PO daily prn #30 tab-caps 08/30/19 tacrolimus 0.1 % topical ointment 1 applic topical BID skin rash on 09/14/22 arms./legs #60 grams acetaminophen 500 mg tablet 1,000 mg (2 x 500 mg) PO TID #90 04/26/23 tabs losartan 100 mg tablet 100 mg PO DAILY #90 tabs 02/19/24 metoprolol succinate 25 mg 50 mg (2 x 25 mg) PO DAILY #180 02/19/24 tablet,extended release 24 hr tabs amlodipine 10 mg tablet 5 mg (1/2 x 10 mg) PO DAILY #45 04/10/24 tabs ferrous sulfate 325 mg (65 mg 325 mg PO DAILY #90 tabs 07/25/24 iron) tablet (Iron (ferrous sulfate)) doxycycline hyclate 100 mg capsule 200 mg (2 x 100 mg) PO ONCE #2 caps 11/09/24 Allergies Allergy/AdvReac Type Severity Reaction Status Date / Time KASSIDY Inhibitors Allergy Intermediate RASH Verified 11/19/24 06:14 Antihistamines - Alkylamine Allergy Intermediate RASH Verified 11/19/24 06:14 gluten Allergy Intermediate Unknown Verified 11/19/24 06:14 lactose Allergy Intermediate Diarrhea Verified 11/19/24 06:14 Penicillins Allergy Intermediate RASH Verified 11/19/24 06:14 poison lisa extract Allergy Intermediate RASH Verified 11/19/24 06:14 fluocinonide Allergy Unknown Unknwon Verified 11/19/24 06:14 aspirin AdvReac Intermediate BLEEDING Verified 11/19/24 06:14 HEMP Allergy Intermediate RASH Uncoded 11/19/24 06:14 General Stated Complaint: Chest Pain UMESH: 3 Exam Narrative Exam Narrative: 1.Const: Well-nourished, Well-developed, appearing stated age 2.Eyes: PERRL, no conjunctival injection, and symmetrical lids. 3.ENT: Atraumatic external nose and ears. Moist MM. Neck: Symmetric, trachea midline, No thyromegaly. 4.CVS: +S1/S2, Peripheral pulses 2+ and equal in all extremities. Brisk capillary refill in all extremities. 5.RESP: Unlabored respiratory effort. Clear to auscultation bilaterally. No wheezes rales or rhonchi 6.GI: Soft, Nontender/Nondistended, No hepatosplenomegaly. No guarding or rebound. 7.MSK: Normocephalic/Atraumatic, Extremities w/o deformity or ttp No cyanosis or clubbing, Normal movement of all extremities 8.Skin: Warm, Dry. No rashes or lesions. 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 Sensation grossly intact, no focal neurologic deficits. 10.Psych: (AAO) x3. Appropriate mood and affect Course Vital Signs Vital signs: Vital Signs Pulse 66 11/19/24 06:10 Respiratory Rate 18 11/19/24 06:10 Pulse Oximetry 98 11/19/24 06:10 Temperature 36.6 C 11/19/24 06:16 Temperature Source Skin 11/19/24 06:16 Pulse 54 L 11/19/24 06:16 Respiratory Rate 18 11/19/24 06:13 Respiratory Effort Normal 11/19/24 06:13 Respiratory Depth Normal 11/19/24 06:13 Respiratory Pattern Normal 11/19/24 06:13 Blood Pressure 197/93 H 11/19/24 06:16 Blood Pressure Mean 127 11/19/24 06:16 Pulse Oximetry 100 11/19/24 06:16 Oxygen Delivery Method Room Air 11/19/24 06:16 Oxygen Flow Rate 0 11/19/24 06:16 Medical Decision Making This is a very pleasant 74-year-old male with a past medical history of diabetes that is being diet and lifestyle manage, hypertension, high cholesterol, previous spontaneous pneumothorax, multiple allergies, strong family history in his brother and father's of cardiac disease, who presents today for evaluation of chest discomfort. Patient states that he woke up this morning in a normal fashion and noticed that he had some mild tightness in his chest radiating from the sides towards the center. He denies any tearing or ripping sensation. He denies any radiation to the neck or arms. He denies any syncope. He states that he feels better now than when symptoms first began. He denies any pleuritic chest pain. He denies any recent exertional discomfort over the last few days or fatigue. He denies any other complaints at this time. He states that he did have a stress test years ago which was unremarkable. No known cardiac history otherwise. Exam demonstrates well-appearing male, pulses intact, vital signs stable, EKG shows no evidence of QRS peaking suggestive of left ventricular hypertrophy, which appears slightly more exaggerated than prior EKG from 2018. No significant ST elevations or depressions otherwise though. Symptoms do not appear consistent with STEMI, however cardiac etiology is certainly high on the differential. Spontaneous pneumothorax less likely but of concern. Will give aspirin, evaluate for these etiologies, monitor closely and reassess. 7:26 AM Initial troponin is normal, no white count or bandemia. Lipase normal. Bedside echo shows slight enlargement of left ventricle, but good ejection fraction without significant wall motion abnormality. Chest x-ray negative for acute process. Pending serial troponins. Patient will be signed out to my colleague for follow-up on labs and reassessment. FINDINGS: Lungs: Mild pulmonary vascular prominence. Pleural spaces: No large pleural effusion seen. Heart/Mediastinum: No cardiomegaly. Diaphragm: Elevated left hemidiaphragm. Bones/joints: No acute abnormality. IMPRESSION: No acute findings to explain reported symptoms. Thank you for allowing us to participate in the care of your patient. Dictated and Authenticated by: Rupinder Aparicio MD 11/19/2024 6:56 AM Eastern Time ([place] & [place]) Quality:SDOH Health Related Social Needs: No Data to Display PFSH All Active Problems (Updated 11/19/24 @ 07:27 by Nelson Hearn DO) Chest discomfort (Acute) Prediabetes (Acute) Hyperglycemia (Acute) Leg weakness (Acute) Well adult (Acute) Bleeding gums (Acute) Adjustment disorder (Chronic) Rash (Acute) Peripheral edema (Acute) Chest pain (Acute 06/01/92) Epigastric pain (Acute) Otitis externa (Acute 05/16/13) Status post vasectomy (Acute) Spontaneous pneumothorax (Acute ~1968) Diverticulosis (Acute ~10/01/18) S/P colonoscopy (Acute ~10/01/18) 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 (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/18/13) continue to use sildenafil as needed Hyperlipidemia (Acute) continue to control weight with diet and exercise Essential hypertension (Acute 04/29/13) same meds Abnormal chest x-ray (Acute 06/23/16) bilateral apical scarring and calcifications consistent with asbestos exposure Encounter for screening colonoscopy (Acute) Ingrowing nail, left great toe (Acute) Onychomycosis (Chronic) Medical History Hypertension Normal colonoscopy 2007 Surgical History Dupuytren's contracture of both hands (12/15/15) S/P Excision LEFT: 03/23/2022 S/P Excision RIGHT: 04/26/2023 Vasectomy Family History (Updated 05/22/23 @ 10:16 by Marti Eubanks) Mother , 68 Diabetes Heart disease CHF Stroke Smoker Father , 57 Heart disease Myocardial infarction Sister A-fib Smoker Brother Diabetes Heart disease 10/2015 quadruple bypass Hyperlipidemia Myocardial infarction multiple Thyroid disease Maternal Grandfather , 74 Smoker Paternal Grandfather , 74 Diabetes Myocardial infarction Maternal Grandmother , 60s Diabetes Paternal Grandmother No problems noted. Brother , 68 No problems noted. Brother Myocardial infarction Brother Thyroid disease Brother Cardiomyopathy Brother No problems noted. Brother Diabetes Stroke Brother MS (multiple sclerosis) Brother Bladder cancer 05/2014 Son Brain aneurysm Daughter No problems noted. Social History (Updated 05/22/23 @ 10:13 by Marti Eubanks) Smoking/Tobacco Use Status: Never Second Hand Exposure: Yes Smoking risk assessment performed?: Yes Alcohol Intake: current Alcohol Intake frequency: a few times a week Alcohol type: beer, wine and hard liquor Drug use: Never Adopted: No Caregiver/Support person: No Foster care: No Household members: spouse Housing: house Number of Children: 1 number of grandchildren: 2 Communication Needs: None Education Level: college Do you need help understanding health information?: Never current occupation: Artist Pets and animals: No Sexually active: Yes Do you think of yourself as: straight/heterosexual Current gender identity: male What is your relationship status?: How often do you talk on the phone with friends or family?: three or more times per week How often do you get together with friends or relatives?: twice per week Do you belong to any clubs or organized social groups?: no Panel score (0-1 are the most socially isolated patients): 2 What type of physical activity do you participate in: walking and other Details: Sit ups, push ups, [place] [employer], rowing machine, firewood Duration: 15-30 minutes/day Frequency: 5-6 times per week Mayelin/Restorationist: No preference Special mayelin needs: No Agree to transfusion: Yes Seatbelt use: always Drive intox or ride w/intox tractor driver: No Working smoke detector in home: Yes Carbon monox detector in home: Yes Firearms in home: Yes Firearms unloaded and locked: Yes Do you feel safe at home: Yes POCUS Exam (ED) Limited Cardiac Exam DATE OF EXAM: 11/19/24 TIME OF EXAM: 07:15 PROVIDER THAT PERFORMED THE STUDY: Nelson eHarn IS THIS A REPEAT EXAM DURING THIS ENCOUNTER: no REASON FOR EXAM: Chest pain VISUALIZED STRUCTURES: Left atrium, Left ventricle, Aortic valve and Interventricular septum VIEW OBTAINED: Parasternal long-axis PERTINENT FINDINGS/IMPRESSION: Other (Mild enlargement dilatation of the left ventricle, normal ejection fraction) Exam complete
[2024-11-19 06:33] LABS: Abs Immature Grans 0.02 10^3/uL (0.0-0.06); Absolute Basophil Count 0.11 10^3/uL (0.0-0.2); Absolute Eosinophil Count 0.81 10^3/uL (0.0-0.7); Absolute Lymphocyte Count 1.98 10^3/uL (1.2-3.4); Absolute Neutrophil Count 3.26 10^3/uL (1.2-6.7); Basophils % 1.6 %; Eosinophils % 11.9 %; HCT 42.1 % (40.0-50.0); HGB 13.9 g/dL (13.5-17.5); Immature Grans % 0.3 %; Lymphocytes % 29.2 %; MCH 28.9 pg (27.0-33.0); MCV 88 fL (80-95); MPV 10.7 fL (8.0-11.0); Monocytes % 8.8 %; Neutrophils % 48.2 %; Platelet Count 239 10^3/uL (130-400); RBC 4.81 10^6/uL (4.36-5.78); RDW-SD 51.5 fL; WBC 6.78 10^3/uL (4.4-10.8)
[2024-11-19 06:47] LABS: PTT Activated 24.3 sec (20.6-30.2); Prothrombin Time 10.2 sec (9.1-11.1)
[2024-11-19 06:57] LABS: ALT 26 U/L (16-63); AST 23 U/L (15-37); Albumin 3.6 g/dL (3.4-5.0); Alkaline Phosphatase 62 U/L (46-116); Anion Gap 7.4 mmol/L (3-11); BUN 20 mg/dL (7-18); CO2 29.6 mmol/L (21.0-32.0); CREATININE 1.3 mg/dL (0.70-1.30); Calcium 9.1 mg/dL (8.5-10.1); Chloride 105 mmol/L (98-107); Estimated GFR 57.65 (mL/min/1.73m2); Glucose 103 mg/dL (74-106); Lipase 72 U/L (<78); NT-proBNP 79 pg/mL (<300); Potassium 3.9 mmol/L (3.5-5.1); Sodium 142 mmol/L (136-145); Total Protein 7.2 g/dL (6.4-8.2); Troponin I 7 ng/L (<or=76)
--- NOTE | 2024-11-19 06:57 | DI.VRAD_ITS ---
PROCEDURE INFORMATION: Exam: XR Chest Exam date and time: 11/19/2024 6:49 AM Age: 74 years old Clinical indication: Pain; Central chest discomfort TECHNIQUE: Imaging protocol: Radiologic exam of the chest. Views: 1 view. COMPARISON: No relevant prior studies available. FINDINGS: Lungs: Mild pulmonary vascular prominence. Pleural spaces: No large pleural effusion seen. Heart/Mediastinum: No cardiomegaly. Diaphragm: Elevated left hemidiaphragm. Bones/joints: No acute abnormality. IMPRESSION: No acute findings to explain reported symptoms. Dictated and Authenticated by: Rupinder Aparicio MD. Orderin Nadiya Damon MD
--- NOTE | 2024-11-19 07:31 | W.EDPROG ---
Date of service: 11/19/24 Time of Service: 07:31 Medical Decision Making In brief, this is a 74-year-old male patient presenting for evaluation of bilateral chest tightness and discomfort. At the time that I took over his care, he had a reassuring physical examination and a nonischemic EKG. He was awaiting 1 and 3-hour troponins, and reports that his symptoms have resolved. His x-ray did not show any acute abnormalities to explain his symptoms. His delta troponins were trended, and are without significant interval elevation. I discussed his symptoms and history with him and his at bedside, and I recommended that he reach out to his primary care provider as I think he would benefit from expedited stress testing, though I do not see that he needs to be admitted to this hospital to get this study done. I recommended continuing all medications including his blood pressure medication, and at this time, the patient has had a full medical evaluation and is safe for discharge to home. They are hemodynamically stable, ambulatory, and tolerating PO. They are understanding of the follow-up plan and return precautions. They left our facility without incident. Sabra Tyson MD Medical Records Medical records reviewed: Yes I reviewed the patient's medical records. Lab Data Lab results reviewed: Yes I reviewed the patient's lab results. Quality:SDOH Health Related Social Needs: No Data to Display Discharge Plan Disposition Patient Disposition: Home Condition: Stable Discharge Details Clinical Impression: Chest discomfort Primary Care Provider: Gian Israel ED Provider: Sabra Tyson Home Meds and New Rx's Prescriptions: No Action mecobalamin (vitamin B12) 500 mcg tablet,chewable 500 mcg PO DAILY doxycycline hyclate 100 mg capsule 200 mg PO ONCE Qty: 2 0RF Rx Instructions: Take 2 tabs (200mg) x1. Be cautious of sun exposure CENTRUM SILVER TABLET 1 EACH tablet 0.5 tab PO DAILY Qty: 90 3RF sildenafil [Viagra] 100 mg tablet 100 mg PO daily prn Qty: 30 11RF tacrolimus 0.1 % ointment 1 applic topical BID Qty: 60 1RF losartan 100 mg tablet 100 mg PO DAILY Qty: 90 3RF metoprolol succinate 25 mg tablet extended release 24 hr 50 mg PO DAILY Qty: 180 3RF amlodipine 10 mg tablet 5 mg PO DAILY Qty: 45 3RF ferrous sulfate [Iron (ferrous sulfate)] 325 mg (65 mg iron) tablet 325 mg PO DAILY Qty: 90 3RF acetaminophen 500 mg tablet 1,000 mg PO TID Qty: 90 0RF Discharge Instructions Instructions: Chest Pain (DC) Additional Instructions: You were seen in the emergency department today for evaluation of chest discomfort. In our department you had a full physical examination performed, had laboratory studies that were reassuring including negative cardiac enzymes. Your chest x-ray is stable, and at this time it is safe for you to go home. However, you have a high risk history in your family and should contact your primary care provider in the next few days to discuss this visit, any symptoms that change, worsen, or persist, and schedule a stress test to ensure that you are not experiencing symptoms due to your heart. Please follow-up with your primary care provider in the next few days to discuss this visit and any symptoms that change, worsen, or persist. Thank you for allowing us to be part of your care.
[2024-11-19 08:04] LABS: Troponin I 6 ng/L (<or=76)
[2024-11-19 09:42] LABS: Troponin I 9 ng/L (<or=76)
== END 2024-11-19 10:09 | disposition home or self-care (01) ==
PROVIDERS: Student in an Organized Health Care Education/Training Program; Emergency Provider Emergency Medicine; PCP Family Medicine
DX: R07.9 Chest pain, unspecified (principal); I10 Essential (primary) hypertension; E11.9 Type 2 diabetes mellitus without complications; E78.5 Hyperlipidemia, unspecified; Z82.49 Family history of ischemic heart disease and other diseases of the circulatory system
CPT/HCPCS: 00123; 80053; 83690; 93005; 93308; 99285; 71045; 83880; 84484; 85025; 85610; 85730; 93010; 99284

== ENCOUNTER 2024-12-02 02:19 | Outpatient (CLI) | payer MEDICARE, SELFPAY ==
--- NOTE | 2024-12-02 07:00 | DI.NM_ITS ---
APPROVED REPORT Exam: Exercise Treadmill Patient Location: Out-Patient Room/Bed: Stress Nurse: Brooke Batista RN Ordering Provider:DORINDA SURESH, Contact Number: [phone] BMI: 29.83 Baseline Rhythm: Sinus Bradycardia Indications: Chest pain Medical History Medical History: Pre-diabetes, peripheral edema, spontaneous pneumothorax, HLD, HTN, adjustment disor wade Cardiac Medications: Amlodipine, losartan, metoprolol succinate, sildenafil, iron, aspirin, omeprazol e Allergies: Dionte inhibitors, antihistamines, penicillins, aspirin, fluocinonide Cardiac Risk Factors: Family hx, HTN, HLD, pre-diabetes Previous Cardiac Procedures: None Pretest Chest Pain Characteristics: None Exercise History: Physically active Physical Disabilities: None Lung Sounds: Clear to auscultation Heart Sounds: Regular Stress Test Details Test: Exercise stress testing was performed using a Liu protocol. Nuclear Acquisition: Rest Tc-99m/Stress Tc-99m 1 day Rest Isotope: Tc-99m Sestamibi. Dose: 10.0 Date: 12/02/2024 Injection Time: 0845 Stress Isotope: Tc-99m Sestamibi. Dose: 30.0 Date: 12/02/2024 Injection Time: 1025 HR Resting HR Supine: 55 bpm Max Heart Rate (APMHR): 146 bpm Resting HR Standin bpm Target HR (85% APMHR): 124 bpm Max HR Achieved: 140 bpm % of APMHR: 96 Recovery HR: 72 bpm HR response to stress: Normal HR response to stress BP Resting BP Supine: 156/88 mmHg Resting BP Standin/86 mmHg Max BP: 160/78 mmHg Recovery BP: 142/82 mmHg BP response to stress: Normal blood pressure response to stress. ECG Resting ECG: Sinus Bradycardia Ectopy: Occasional PAC's Stress ECG: Sinus Tachycardia ST Change: No significant ST segment changes noted Arrhythmia: Frequent PVC's, couplets Recovery ECG: Sinus Rhythm Recovery ST Change: No significant ST segment changes noted Recovery Arrhythmia: Occasional PVC's, occasional PAC's, bigeminy Clinical Reason for Termination: Target HR Achieved, mod SOB Stress Symptoms: Mod SOB Exercise duration: 02 min57 sec Highest Stage Reached: Stage 1: 1.7 mph at 10% grade. Exercise capacity: 4.64 METs Angina Score: None Sheldon Treadmill Score: 1.3 Rate Pressure Product: [id number] Stress ECG Conclusion 1. Resting electrocardiogram showed first-degree AV block and early transition 2. Patient exercised on the treadmill to a workload of 4.7 METS. 3. Accelerated heart rate response to exercise. The patient achieved 96% of maximal predicted heart rate for age 4. The electrocardiographic portion of the test was negative for myocardial ischemia 5. Atrial and ventricular ectopic beats were noted 6. See MPI report Sheldon Treadmill Score is 1.3 which is Moderate risk. Stress Test Summary STAGE Time (mins) Speed (mph) Grade (%) HR BP SpO2 SYMPTOMS METS Supine 55 156/88 95% Standing 65 130/86 1 3 1.7 10 133 97% 4.5 1 min recovery 120 150/80 96% 3 min recovery 77 160/78 96% 6 min recovery 72 142/82 MPI Conclusion Myocardial perfusion is normal. There is no ischemia or evidence of prior infarction Ejection fraction is 58% with normal wall motion
== END 2024-12-02 02:39 ==
LOC: DI 02:19
PROVIDERS: PCP Family Medicine; Visit Provider Internal Medicine Cardiovascular Disease
DX: R07.9 Chest pain, unspecified (principal)
CPT/HCPCS: 78452; 93016; 93018; 93017

== ENCOUNTER 2025-01-13 12:48 | Outpatient (CLI) | payer MEDICARE, SELFPAY ==
[2025-01-13 07:57] LABS: Hemoglobin A1C 5.9 % (<5.7)
== END 2025-01-13 12:49 | disposition home or self-care (01) ==
LOC: LBO 12:48
PROVIDERS: PCP Family Medicine; Visit Provider Family Medicine
DX: R73.9 Hyperglycemia, unspecified (principal)
CPT/HCPCS: 36415; 83036

== ENCOUNTER → 2025-04-17 10:05 | Outpatient (BNVA) | payer MEDICARE, SELFPAY | PROVIDERS: PCP Family Medicine; Referring Provider Family Medicine; Visit Provider Student in an Organized Health Care Education/Training Program | DX: M72.0 Palmar fascial fibromatosis [Dupuytren] (principal) | CPT/HCPCS: 99213 ==

== ENCOUNTER 2025-07-02 10:27 | Outpatient (CLI) | payer MEDICARE, SELFPAY ==
[2025-07-02 11:23] LABS: Uric Acid 5.8 mg/dL (3.7-9.2)
== END 2025-07-02 10:28 | disposition home or self-care (01) ==
LOC: LBO 10:27
PROVIDERS: PCP Family Medicine; Visit Provider Nurse Practitioner Family
DX: M10.9 Gout, unspecified (principal)
CPT/HCPCS: 36415; 84550